=== PATIENT | female | born 1960 | race African-American/Black ===

== ENCOUNTER 2023-11-05 14:00 | Inpatient (IN) | payer MEDICAID ==
[~2023-11-05] VITALS: Ht 165.1 cm; Wt 68.0 kg
[~2023-11-05 14:00] MED LIST: BACL-141 PO; FERR325T6 MT; GABA-534 PO; LOSA25TA26 PO; MAGN400T55 PO; METO25TA6 PO; OMEP20CA14 MT; SENN-257 MT; SUCR1TAB30 MT; SYN175 PO
[2023-11-05] MEDS ORDERED: ONDANSETRON HCL 4MG/2ML INJ IV STA (15:12)
[2023-11-05] MEDS ORDERED: MORPHINE SULFATE 4 MG/ML INJ (FOR IV/IM USE) IV STA (15:12)
[2023-11-05 15:25] LABS: BASOPHILS % 1.4 % (0.0-2.0); EOSINOPHILS % 6.3 % (0.0-5.0); HEMATOCRIT. 31.5 % (36.0-48.0); HEMOGLOBIN. 10.2 g/dL (12.0-16.0); LYMPHOCYTES % 41.4 % (20.0-50.0); MEAN CORPUSCULAR HGB CONC 32.4 g/dL (31.0-37.0); MEAN CORPUSCULAR VOLUME 95.7 fL (81.0-99.0); MEAN PLATELET VOLUME 10.2 fl (7.4-10.4); MONOCYTES % 6.4 % (2.0-8.0); NEUTROPHILS % 44.5 % (40.0-76.0); PLATELET 293 x1000/uL (130-400); RED BLOOD CELL COUNT 3.29 mill/uL (4.2-5.4); RED CELL DISTRIBUTION WIDTH 16.7 % (11.6-14.6)
[2023-11-05 15:33] LABS: ALANINE AMINOTRANSFERASE 31 IU/L (10-49); ALBUMIN 4.7 g/dL (3.2-4.8); ASPARTATE AMINOTRANSFERASE 81 IU/L (<34); BILIRUBIN TOTAL 0.3 mg/dL (0.1-1.0); CARBON DIOXIDE 23 mEq/L (21-32); CHLORIDE 107 mEq/L (98-107); CREATININE 1.3 mg/dL (0.6-1.0); GLUCOSE 86 mg/dL (70-105); SODIUM 138 mEq/L (136-145); UREA NITROGEN BLOOD 21 mg/dL (9-23)
[2023-11-05 15:35] LABS: PARTIAL THROMBOPLASTIN TIME 28.5 sec (23.4-31.0); PROTHROMBIN TIME 11.5 sec (9.6-11.0)
[2023-11-05] MEDS: ONDANSETRON HCL 4MG/2ML INJ IV NR (17:06)
[2023-11-05] MEDS: MORPHINE SULFATE 4 MG/ML INJ (FOR IV/IM USE) IV NR (17:06)
[2023-11-05] MEDS ORDERED: ACETAMINOPHEN 325MG TABLET PO PRN (19:00)
[2023-11-05] MEDS ORDERED: IPRATROPIUM/ALBUTEROL 0.5-3(2.5)MG/3ML NEB HHN PRN (19:00)
[2023-11-05] MEDS: SODIUM CHLORIDE 0.9% 1,000 ML IV SCH (19:17)
[2023-11-05] MEDS: PANTOPRAZOLE SODIUM 40 MG/VIAL IV SCH (19:21)
[2023-11-05 22:48] VITALS: BP 155/82; PULSE 104; RESP 18; TEMP 97.7
[2023-11-05] MEDS ORDERED: IOHEXOL-300 100 ML BOTTLE ONE (23:34)
[2023-11-06] VITALS: BP 121/57; PULSE 100; RESP 18; TEMP 98.7
[2023-11-06] MEDS ORDERED: AMLO5TAB88 MT (00:38)
[2023-11-06] MEDS: DIPHENHYDRAMINE 50MG/ML VIAL IV PRN (00:43)
[2023-11-06 04:00] VITALS: BP 144/75; PULSE 100; RESP 18; TEMP 97.4
[2023-11-06 07:10] LABS: ALANINE AMINOTRANSFERASE 19 IU/L (10-49); ALBUMIN 3.4 g/dL (3.2-4.8); ASPARTATE AMINOTRANSFERASE 49 IU/L (<34); BILIRUBIN TOTAL 0.5 mg/dL (0.1-1.0); CALCIUM 8.3 mg/dL (8.7-10.4); CARBON DIOXIDE 23 mEq/L (21-32); CHLORIDE 109 mEq/L (98-107); CREATININE 1.2 mg/dL (0.6-1.0); GLUCOSE 71 mg/dL (70-105); POTASSIUM 3.8 mEq/L (3.5-5.1); PROTEIN TOTAL 6.9 g/dL (6.0-8.3); SODIUM 140 mEq/L (136-145); UREA NITROGEN BLOOD 17 mg/dL (9-23)
[2023-11-06 08:00] VITALS: BP 106/67; PULSE 88; RESP 18; TEMP 97.6
[2023-11-06 08:09] LABS: BASOPHILS % 0.9 % (0.0-2.0); HEMATOCRIT. 25.7 % (36.0-48.0); LYMPHOCYTES % 22.5 % (20.0-50.0); MEAN CORPUSCULAR HEMOGLOBIN 30.5 pg (28.0-32.0); MEAN CORPUSCULAR HGB CONC 32.4 g/dL (31.0-37.0); MEAN CORPUSCULAR VOLUME 94.3 fL (81.0-99.0); MEAN PLATELET VOLUME 9.6 fl (7.4-10.4); MONOCYTES % 7.8 % (2.0-8.0); NEUTROPHILS % 65.8 % (40.0-76.0); PLATELET 203 x1000/uL (130-400); RED BLOOD CELL COUNT 2.73 mill/uL (4.2-5.4); WHITE BLOOD COUNT 4.6 x1000/uL (4.5-11.0)
[2023-11-06 08:11] LABS: HEMOGLOBIN. 8.3 g/dL (12.0-16.0)
[2023-11-06] MEDS ORDERED: NALOXONE HCL 0.4MG/ML VIAL IV PRN (10:30)
[2023-11-06] MEDS: MORPHINE SULFATE 2 MG/ML CPJ (NOT FOR IM USE) IV PRN (11:58)
[2023-11-06 12:07] VITALS: BP 126/63; PULSE 86; RESP 20; TEMP 97.6
[2023-11-06] MEDS: BACLOFEN 10MG TABLET PO SCH (13:00)
[2023-11-06] MEDS: GABAPENTIN 400MG CAPSULE PO SCH (13:00)
[2023-11-06] MEDS: LEVOTHYROXINE SODIUM 175MCG TABLET PO SCH (14:13)
[2023-11-06 16:00] VITALS: BP 136/73; PULSE 86; RESP 16; TEMP 98.1
[2023-11-06] MEDS: MAGNESIUM OXIDE 400MG TABLET PO SCH (16:51)
[2023-11-06] MEDS: HYDROCODONE/ACETAMINOPHEN 5/325MG TABLET PO PRN (16:52)
[2023-11-06 20:00] VITALS: BP 140/62; PULSE 80; RESP 18; TEMP 97.7
[2023-11-07] VITALS (7 sets, daily range): BP systolic 124–168; BP diastolic 62–86; PULSE 62–98; RESP 13–19; TEMP 97–98.5; O2SAT 98
[2023-11-07] MEDS: CLONIDINE 0.1MG TABLET PO PRN (05:49)
[2023-11-07] MEDS: ONDANSETRON HCL 4MG/2ML INJ IV PRN (12:04)
[2023-11-08] VITALS: BP 121/70; PULSE 90; RESP 18; TEMP 98.5
[2023-11-08 04:00] VITALS: BP 154/75; PULSE 77; RESP 19; TEMP 98.9
[2023-11-08 08:00] VITALS: BP_SYST 145; BP_SYST 154; BP_DIAS 60; BP_DIAS 78; PULSE 64; PULSE 74; RESP 16; TEMP 98.1; TEMP 98.2
[2023-11-08 09:31] LABS: BASOPHILS % 0.8 % (0.0-2.0); EOSINOPHILS % 6.4 % (0.0-5.0); HEMATOCRIT. 28.1 % (36.0-48.0); HEMOGLOBIN. 9.1 g/dL (12.0-16.0); LYMPHOCYTES % 27.1 % (20.0-50.0); MEAN CORPUSCULAR HEMOGLOBIN 30.8 pg (28.0-32.0); MEAN CORPUSCULAR HGB CONC 32.4 g/dL (31.0-37.0); MEAN CORPUSCULAR VOLUME 95.2 fL (81.0-99.0); MEAN PLATELET VOLUME 10.1 fl (7.4-10.4); MONOCYTES % 8.9 % (2.0-8.0); NEUTROPHILS % 56.8 % (40.0-76.0); PLATELET 208 x1000/uL (130-400); RED BLOOD CELL COUNT 2.96 mill/uL (4.2-5.4); RED CELL DISTRIBUTION WIDTH 15.2 % (11.6-14.6); WHITE BLOOD COUNT 5.2 x1000/uL (4.5-11.0)
[2023-11-08 09:49] LABS: CALCIUM 8.5 mg/dL (8.7-10.4); CARBON DIOXIDE 26 mEq/L (21-32); CHLORIDE 104 mEq/L (98-107); CREATININE 1.2 mg/dL (0.6-1.0); GLUCOSE 93 mg/dL (70-105); IRON 27 ug/dL (50-170); POTASSIUM 3.5 mEq/L (3.5-5.1); SODIUM 135 mEq/L (136-145); TOTAL IRON BINDING CAPACITY 211 ug/dl (250-425); UREA NITROGEN BLOOD 10 mg/dL (9-23)
[2023-11-08 09:51] VITALS: BP 148/77; PULSE 80; TEMP 97.6
[2023-11-08 09:53] LABS: FERRITIN 30 ng/mL (10-291); FOLIC ACID (FOLATE) SERUM 15.54 ng/mL (>5.38); VITAMIN B12 SERUM 407 pg/mL (211-911)
[2023-11-08 10:03] VITALS: BP 148/77; PULSE 80; RESP 16; TEMP 97.6
[2023-11-08 10:07] VITALS: BP 148/77; PULSE 80; RESP 16
[2023-11-08] MEDS ORDERED: IOHEXOL-300 100 ML BOTTLE ONE (10:43)
[2023-11-08] MEDS ORDERED: FERROUS SULFATE 325MG TABLET PO SCH (18:00)
[2023-11-08] MEDS ORDERED: ASCORBIC ACID 250 MG TABLET PO SCH (18:00)
== END 2023-11-08 13:10 | disposition home or self-care (01) | DRG 253 ==
LOC: ER 14:00 → 7EST 18:37 → EDBEDREQ 18:40
PROVIDERS: ADMIT Internal Medicine; ATTEND Internal Medicine
DX: K92.2 Gastrointestinal hemorrhage, unspecified (principal); N17.9 Acute kidney failure, unspecified; G83.9 Paralytic syndrome, unspecified; D64.9 Anemia, unspecified; N18.9 Chronic kidney disease, unspecified; I12.9 Hypertensive chronic kidney disease with stage 1 through stage 4 chronic kidney disease, or unspecified chronic kidney disease; E03.9 Hypothyroidism, unspecified; D25.9 Leiomyoma of uterus, unspecified; Z74.01 Bed confinement status; Z93.3 Colostomy status; Z90.49 Acquired absence of other specified parts of digestive tract; Z88.2 Allergy status to sulfonamides
CPT/HCPCS: 36415; 74177; 80048; 80053; 82270; 82607; 82728; 82746; 83540; 83550; 85025; 86850; 86900; 93970; 99285; C9113; J1200; J2270; J2405; Q9967